=== PATIENT | female | born 1965 | race Caucasian/White ===

== ENCOUNTER → 2018-07-18 | Outpatient (CLI) | payer OTHER | LOC: FIMAGING 08:04 | PROVIDERS: ATTEND Internal Medicine | DX: N13.30 Unspecified hydronephrosis (principal); K82.9 Disease of gallbladder, unspecified; N93.9 Abnormal uterine and vaginal bleeding, unspecified; R16.0 Hepatomegaly, not elsewhere classified; C18.9 Malignant neoplasm of colon, unspecified ==